=== PATIENT | male | born 1965 | race Caucasian/White ===

== ENCOUNTER 2021-07-31 15:47 | Emergency (ER) | payer BC ==
[~2021-07-31] VITALS: Ht 190.5 cm; Wt 98.7 kg
[2021-07-31] MEDS ORDERED: LISINOPRIL10 MG PO (19:41)
--- NOTE | 2021-07-31 21:29 | EKG ---
[facility] [address] [facility] [place], [place] [address] Signed Normal sinus rhythm Normal ECG No previous ECGs available Confirmed by FLORESITA DAVISON DO ([id number]) on 07/31/2021 9:28:46 PM Electronically Signed By: FLORESITA DAVISON DO 07/31/212128 PATIENT NAME: ZELDA DAVIS Electrocardiogram DATE OF : 69 PHYSICIAN: FLORESITA DAVISON DO REPORT #: [id number] REPORT IS CONFIDENTIAL AND NOT TO BE RELEASED WITHOUT AUTHORIZATION
== END 2021-07-31 19:50 | disposition home or self-care (01) ==
LOC: ED 15:47
DX: I10 Essential (primary) hypertension (principal); G43.909 Migraine, unspecified, not intractable, without status migrainosus; Z88.0 Allergy status to penicillin
CPT/HCPCS: 70450; 80053; 85025; 93005; 93010; 99284-25